=== PATIENT | male | born 1940 | race Caucasian/White ===

== ENCOUNTER 2019-12-14 09:15 | Emergency (ER) | payer MEDICARE ==
[~2019-12-14] VITALS: Ht 177.8 cm; Wt 99.2 kg
[2019-12-14] MEDS ORDERED: TYLENOL EXTRA500 MG PO (09:39)
[2019-12-14] MEDS ORDERED: PROAIR HFA8.5 GM INH (09:39)
[2019-12-14] MEDS ORDERED: CARVEDILOL25 MG PO (09:39)
[2019-12-14] MEDS ORDERED: ANORO ELLIPTA1 EACH INH (09:39)
[2019-12-14] MEDS ORDERED: HYDRALAZINE 5050 MG PO (09:40)
[2019-12-14] MEDS ORDERED: PEDIA-LAX400 MG PO (09:40)
[2019-12-14] MEDS ORDERED: FERGON240 M1 PO (09:40)
[2019-12-14] MEDS ORDERED: VITAMIN D3 COM1 EACH PO (09:41)
[2019-12-14] MEDS ORDERED: NOVOLOG100 UNIT/M SUBQ (09:41)
[2019-12-14] MEDS ORDERED: GLUCAGON EMERGEN1 M1 SUBQ (09:42)
[2019-12-14] MEDS ORDERED: KLOR-CON M2020 MEQ PO (09:43)
[2019-12-14] MEDS ORDERED: LEVEMIR100 UNIT/1 (09:43)
[2019-12-14] MEDS ORDERED: SYNTHROID175 MCG PO (09:43)
[2019-12-14] MEDS ORDERED: FLOMAX0.4 MG PO (09:43)
[2019-12-14] MEDS ORDERED: LASIX 40 MG TAB40 MG PO (09:43)
[2019-12-14] MEDS ORDERED: SPIRONOLACTONE25 MG PO (09:43)
[2019-12-14 09:53] LABS: ABSOLUTE BASOPHILS 0.1 thou/uL (0.0-0.2); ABSOLUTE EOSINOPHILS 0.2 thou/uL (0.0-0.7); ABSOLUTE LYMPHOCYTES 0.8 thou/uL (0.8-5.3); ABSOLUTE MONOCYTES 0.7 thou/uL (0.0-1.2); ABSOLUTE NEUTROPHILS 5.6 thou/uL (1.6-8.1); BASOPHILS 0.7 %; HEMATOCRIT 34.2 % (42.0-52.0); HEMOGLOBIN 11.6 gm/dL (14.0-18.0); LYMPHOCYTES 10.3 %; MCH 30.4 pg (26.0-34.0); MCHC 33.9 g/dL (28.0-37.0); MCV 89.7 fL (80.0-100.0); MONOCYTES 9.1 %; MPV 7.3 fl. (7.2-11.1); NUCLEATED RBCS 0 /100WBC; PLATELET COUNT* 116 thou/uL (150-400); POLYS 76.9 %; RBC 3.82 mil/uL (4.50-6.00); RDW-CV 14.7 % (10.5-14.5); WBC 7.3 thou/uL (4.0-11.0)
[2019-12-14 10:04] LABS: APTT 28.1 Seconds (25.0-31.3); PROTIME 10.7 Seconds (9.20-11.50)
[2019-12-14 10:12] LABS: CALCIUM 8.7 mg/dL (8.5-10.1); CREATININE 4.1 mg/dL (0.6-1.3)
[2019-12-14 10:15] LABS: ALBUMIN 3.5 g/dL (3.4-5.0); TOTAL BILIRUBIN 0.4 mg/dL (<0.1-1.0); TOTAL PROTEIN 8.4 g/dL (6.4-8.2)
[2019-12-14 11:02] LABS: URINE BILIRUBIN NEGATIVE (Negative); URINE BLOOD NEGATIVE (Negative); URINE CLARITY CLEAR; URINE COLOR YELLOW; URINE GLUCOSE-RANDOM NEGATIVE (Negative); URINE KETONES NEGATIVE (Negative); URINE LEUKOCYTES-REFLEX NEGATIVE (Negative); URINE NITRITE-REFLEX NEGATIVE (Negative); URINE PROTEIN 2+ (Negative); URINE SPECIFIC GRAVITY 1.025 (1.005-1.030); URINE UROBILINOGEN 0.2 E.U./dl (0.2-1.0)
[2019-12-14 11:14] LABS: SQUAMOUS 4-10 Moderate /LPF (0-3); URINE WBC-REFLEX 0-5 Rare /HPF (0-5)
[2019-12-14 11:16] LABS: HYALINE CASTS >10 Many /LPF (None Seen); MUCUS None Seen strn/LPF (None Seen); URINE RBC 0-2 Rare /HPF (0-2)
[2019-12-14 11:17] LABS: AMORPHOUS URATES Moderate /LPF (None Seen); CRYSTALS None Seen /LPF (None Seen)
[2019-12-14 11:52] LABS: BE -26.2 mmol/L (-2 to +3)
[2019-12-14 11:55] LABS: PCO2 70.3 mmHg (35.0-45.0); PO2 143.8 mmHg (75.0-100.0); pH 6.746 (7.340-7.450)
[2019-12-14 13:58] VITALS: BP 0/0
--- NOTE | 2019-12-14 14:21 | EKG ---
[place] [address] ELECTROCARDIOGRAM REPORT Name: CHANTELL VALENZUELA JR Room: [facility]#: [id number] Admission: 12/14/19 Attend Phys: Discharge: 12/14/19 Date of : 36 Date of Service: 12/14/19929 Report #: [id number] THIS REPORT FOR: //name// [facility] ED Test Date: 2019-12-14 Test Time: 09:30:20 Pat Name: CHANTELL VALENZUELA Department: Room: Gender: Procedure Analyst: : 1940 Requested By: Luis Blanca Order Number: [id number] MD: Tanner Cruz Measurements Intervals [place] Rate: 30 P: 50 FL: 149 QRS: -101 QRSD: 140 T: 50 QT: 641 QTc: 453 Interpretive Statements ventricular paced rhythm Baseline wander in lead(s) V3 No previous ECG available for comparison Electronically Signed On 12-14-2019 14:21:03 CDT by Tanner Cruz [email or web address] <ELECTRONICALLY SIGNED> By: Tanner Cruz MD, [facility] 12/14/19 1421 9 9 Tanner Cruz MD, [facility] /EPI
--- NOTE | 2019-12-16 14:44 | CON ---
[address] [address] CONSULTATION Name: CHANTELL VALENZUELA JR Room: [facility]#: [id number] Admission: 12/14/19 Attend Phys: Discharge: 12/14/19 Date of : 36 Report #: [id number] THIS REPORT FOR: //name// cc: Rich Thakur MD, James MD ~ THIS REPORT FOR: //name// CC: Rich Blanca DATE OF SERVICE: 12/14/2019 CARDIOLOGY CONSULTATION HISTORY OF PRESENT ILLNESS: The patient is an 78-year-old white male whom I was asked to see in the Emergency Room today after he was noted to be bradycardic. The history was obtained from some old records. The patient currently lives in a detention. He has had previous placement of a pacemaker. He has a history of congestive heart failure and diabetes. He was brought to the Emergency Room this morning by family members. He apparently was weak and had fallen. He was noted to be bradycardic. Cardiology consultation was requested. MEDICATIONS: At the detention include albuterol, carvedilol, hydralazine, insulin, Lasix, Synthroid, Flomax, spironolactone, potassium. REVIEW OF SYSTEMS: Cannot be obtained. SOCIAL HISTORY: Cannot be obtained. PHYSICAL EXAMINATION: VITAL SIGNS: Blood pressure is 100/60, pulse is 40. HEENT: He was anicteric. Conjunctivae pink. Mucous members moist. NECK: Supple. CHEST: Clear to auscultation. CARDIAC: Regular, bradycardia. ABDOMEN: Soft. EXTREMITIES: Had trace edema. SKIN: Cool and dry. LABORATORY DATA: ECG showed a ventricular paced rhythm at 30 beats per minute. His workup in the Emergency Room today, he had ____ 228. Troponin 0.06. White blood cell count 7.3, hematocrit 34.2. His potassium and creatinine are markedly elevated. IMPRESSION AND RECOMMENDATIONS: 1. Bradycardia, suspect secondary to hyperkalemia[place] [address] CONSULTATION Name: CHANTELL VALENZUELA Room: [facility]#: [id number] Admission: 12/14/19 Attend Phys: Discharge: 12/14/19 Date of : 36 Report #: [id number] consult. 2. Elevated creatinine. Suspect renal failure. 3. History of chronic obstructive pulmonary disease. 4. Anemia. 5. Diabetes. 6. Obesity. 7. Chronic leg swelling. Suspect venous insufficiency. The patient is on Lasix. <ELECTRONICALLY SIGNED> By: Tanner Cruz MD, [facility] 12/16/19 1444 1031 1040Daalison Cruz MD, FACC /nt
== END 2019-12-14 13:55 ==
LOC: M.ERS 09:15
PROVIDERS: Emergency Medicine Emergency Medical Services
DX: E87.5 Hyperkalemia (principal); Z20.828 Contact with and (suspected) exposure to other viral communicable diseases; Z95.5 Presence of coronary angioplasty implant and graft